=== PATIENT | male | born 1970 | race Caucasian/White ===

== ENCOUNTER 2017-01-22 12:43 | Inpatient (IN) | payer MEDICARE, MEDICAID ==
[~2017-01-22] VITALS: Ht 182.9 cm; Wt 72.4 kg
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
--- NOTE | ~2017-01-22 | CON ---
PATIENT'S NAME: DIGNA JONAS [facility] AGE: 46 Y [address] ROOM: [place] [address] LOCATION: GPCU ADMIT DATE: 01/22/2017 Consultation DISCHARGE DATE: FAMILY PHYSICIAN: PHYSICIAN, UNKNOWN ATTENDING PHYSICIAN: Nahomi WRIGHT DATE OF CONSULTATION: 01/23/2017 REFERRING PHYSICIAN: Nahomi Wright MD REASON FOR CONSULT: Multiple skin issues. HISTORY OF PRESENT ILLNESS: This is a 46-year-old male patient who was admitted to [facility] with acute encephalopathy. He has history of TBI and mood disorder. He was found lying in a motel room. No family at bedside. Unsure how long the patient was on the ground. Per previous records, the patient has a history of bipolar and was recently living with his mother, but they had a falling out. During my interaction, the patient is unable to answer questions. He is agitated and thrashing around in bed. PAST MEDICAL HISTORY: TBI, unspecified mood disorder, and bipolar. PAST SURGICAL HISTORY: Pain stimulator. FAMILY HISTORY: Unable to obtain. SOCIAL HISTORY: The patient was currently living in a hotel. Unsure about toxic habits. ALLERGIES: PER PREVIOUS RECORDS, ANESTHETIC, PENICILLIN, SULFA, ACETAMINOPHEN, BUPIVACAINE, CODEINE, HYDROCODONE, MORPHINE, OXYCODONE, METHADONE, AND PROPOXYPHENE. CURRENT MEDICATIONS: Please refer to the medication administration record. REVIEW OF SYSTEMS: Unable to complete due to the patient's agitation and mentation. PHYSICAL EXAMINATION: PATIENT'S NAME: DIGNA JONAS [facility] AGE: 46 Y [address] ROOM: [place] [address] [facility] AD[facility] DATE: 01/22/2017 Consultation DISCHARGE DATE: FAMILY PHYSICIAN: PHYSICIAN, UNKNOWN ATTENDING PHYSICIAN: Nahomi WRIGHT VITAL SIGNS: Temperature 98.5, pulse is 96, respirations 18, blood pressure 129/67, pulse oximetry 94% on 2 L. Height not documented, and weight 69.4 kg. GENERAL: The patient is alert and agitated. He is thrashing around in bed. Soft speech at times. The patient unkempt. Obvious multiple skin issues on first appearance. HEENT: No teeth. Scattered red dry lesions to upper lip. Does resemble vesicles. ABDOMEN: Flat ecchymosis to right flank. EXTREMITIES: Bony feet. Patient thrashing around, so unable to feel pedal pulses. SKIN: Limited due to agitation, unable to obtain any measurements. The patient has a sacral purple area resembling a deep tissue injury that is closed. Blanchable erythema to the perimeter. The patient bilaterally has significant scabbing and abrasions that are dry to knees. Blanchable redness to the patient's right lateral malleolus. Left elbow has scattered abrasions, which are already covered with yellow slough with redness and edema. Obviously, tender to touch. The patient withdraws when I try to assess. Ecchymosis to right groin fold and right thigh. Redness to right elbow. Scattered ecchymosis to upper shoulders. LABORATORY DATA: White blood cell count 20.4, hemoglobin 10.1, hematocrit 30.9, platelets 661. Sodium 145, potassium 4.1, chloride 113, bicarb 14, creatinine 0.7, BUN 15, glucose 86, albumin 2.4. GFR greater than 90. Ammonia 34. Procalcitonin 0.10. Urine drug screen positive for opiates only. D-dimer 0.76. Lactate 1.9. ASSESSMENT AND PLAN: Again, this is a 46-year-old male patient who has been admitted to [facility] with acute encephalopathy. He was found lying in a motel room for an uncertain amount of time. Multiple skin issues noted. 1. Sacral deep tissue injury. I anticipate this site with demarcate open. Nursing is to perform strict pressure relief measures turning patient side to side q.2 hours. The patient has a Moeller intact for moisture control. We will continue to monitor. When the patient is able to tolerate oral intake, a dietary consult would be helpful. If he does get up to the chair, he will need an Iris cushion. 2. Multiple abrasions to bilateral knees. It will be difficult to keep dressings on this patient at this current time. We will moisturize with Aloe [place] t.i.d. I applied to his knees and he did calm down. 3. Left elbow scattered abrasions. It took me several times, but was able to eventually apply foam dressings to the sites. I instructed Nursing to change Tuesdays, Fridays, and p.r.n. saturation. The less labor intensive, the better at this point. Foams will encourage wound PATIENT'S NAME: DIGNA JONAS [facility] AGE: 46 Y [address] ROOM: [id number] [place], [place] [address] [facility] AD[facility] DATE: 01/22/2017 Consultation DISCHARGE DATE: FAMILY PHYSICIAN: PHYSICIAN, UNKNOWN ATTENDING PHYSICIAN: Nahomi WRIGHT perforation. Ordered bilateral elbow protectors if the patient will allow. 4. Blanchable redness to right lateral malleolus. Ordered foam foot boots. Hopefully, the patient will allow staff to keep on. If not, his lower legs need to be elevated with pillows at all times. 5. Scattered red lesions to upper lip. I would like Nursing to perform oral cares at least b.i.d. It would be helpful to have a further history to distinguish what these lesions are. Possibly herpes related. 6. Acute encephalopathy. Neurology and psych on board. I would like to thank Dr. Wright for this consult. We will follow. ANGELITO JOHNSON APRN FOR MD MARQUIS STOVER/lucien /[id number] d: 01/23/17937 t: 02/10/17 1120, CONSULTATION REPORT
--- NOTE | ~2017-01-22 | CON ---
PATIENT'S NAME: DIGNA JONAS [facility] AGE: 46 Y [address] ROOM: [id number] [place], [place] [address] LOCATION: GPCU ADMIT DATE: 01/22/2017 Consultation DISCHARGE DATE: FAMILY PHYSICIAN: Rosa Maria Krueger MD ATTENDING PHYSICIAN: Nahomi WRIGHT DATE OF CONSULTATION: 01/24/2017 HISTORY OF PRESENT ILLNESS: The patient was seen in neurologic consultation on the 24 January 2017. I was asked by Dr. Wright to assess Mr. Jonas, who is a 46-year-old male patient who at the time of my seeing the patient, we had very little information about. Apparently, the patient has a psychiatric mood disorder and possibly an alcohol problem. In talking to his mother, she says that he has had admissions in the past for issues associated with alcohol abuse, and she believes potentially that he may have been drinking at home. He does hold a history of a traumatic brain injury for which his brain CAT scan has consistently revealed an area of encephalomalacia in the right temporal lobe. It is unclear as to whether the patient does have a history of bipolar disease and/or a history of psychosis. Apparently, he was living alone often in a state of homelessness and even dishevelment when he was found in a motel room. It is possible that the patient was down on the ground there for at least a day or two. He was living away from his mother after he was in an argument with her. He and his family have a mixed relationship that is often deleterious. I came and saw the patient. He was actually improving with his mental status and was able to answer questions appropriately. He appeared to be having some tremulousness. He was noted to be tachycardic. He was not hypertensive. He did not have any rigidity of his limbs as a possible concern that he may have had a toxic effect of antipsychotic medication side effect or side effects from anti-depressant. Essentially, he made a good recovery with fluid rehydration. He was noted to have some mild rhabdomyolysis, which suggested that he was down on the ground for some time. It is unclear if the patient had a withdrawal seizure, the result of an alcohol withdrawal event, but certainly in the initial days of his admission, the treatment for the patient would be monitoring him for alcohol withdrawal. It is my contention that he was likely a candidate for CIWA protocol due to the potential history of alcohol abuse and his bit of tremulousness and mild agitation with some alcohol withdrawal. Therefore, the patient did receive benzodiazepine dosing, but the patient did not go into any more episodes of agitation and actually did well during his hospitalization. He now is transferred to the ICU for further observation. MEDICAL HISTORY: Unspecified mood disorder. Also, a traumatic brain injury. SURGICAL HISTORY: PATIENT'S NAME: DIGNA JONAS [facility] AGE: 46 Y [address] ROOM: [id number] [place], [place] [address] LOCATION: GPCU ADMIT DATE: 01/22/2017 Consultation DISCHARGE DATE: FAMILY PHYSICIAN: Rosa Maria Krueger MD ATTENDING PHYSICIAN: Nahomi WRIGHT A pain stimulator in his dorsal spine. FAMILY HISTORY: Not elaborated on by the mother. Her answers to me were evasive and not very helpful. CURRENT MEDICATIONS: 1. Metoprolol 12.5 mg p.o. b.i.d. 2. Dextromethorphan 10 mg b.i.d. 3. Pantoprazole 40 mg p.o. daily. 4. Guaifenesin 600 mg p.o. q.6 hours. 5. Folic acid 1 mg p.o. daily. 6. Albuterol sulfate 2.5 mg p.o. q.6 hours. 7. Ferrous sulfate 325 mg p.o. b.i.d. 8. Quetiapine 100 mg p.o. q.h.s. 9. Haldol 5 mg q.8 hours p.r.n. agitation. 10. Mometasone formoterol 2 puffs b.i.d. inhalation. 11. Nicotine transdermal patch 14 mg daily. REVIEW OF SYSTEMS: The patient denies any recent fevers. He denied any upper respiratory tract infection. He denies any cough. He denied history of drinking, but this history is suggestive by some elevation in his AST compared to ALT as well as slightly low platelet count. Denies any diarrhea or constipation. Urinary- muniz, he is a poor historian, but denies frequency of urination or urinary retention. PHYSICAL EXAMINATION: The patient appeared a bit unkempt and disheveled, but he began to be purposeful in his answers to me. He answered questions appropriately. He did not appear to be agitated, but he had some tremulousness and he was noted to be tachycardic at 115 beats per minute in normal sinus rhythm. Cranial nerves 2 through 12 were intact. His motor exam revealed normal bulk and tone of the muscles of all 4 limbs. He participated in moving his limbs with good power at 5/5 grade. He did not appear to be undernourished. In his mental status, he followed a full cross-body commands such as touching his left face with his right finger, etc. He had occasional repetition of a word much like an echolalia. This was rarely noticed. On stretched hands, he did not demonstrate any asterixis. He did have what appeared to be a bit of restless akathisia. LABORATORY DATA: As noted previously, his AST was elevated to 75 in comparison to ALT of 47. Alkaline phosphatase is normal. His BUN and creatinine also normal. Drug toxicology was negative for barbiturates, benzodiazepines, PCP, cannabinoids, and amphetamine. Alcohol level was negative. PATIENT'S NAME: DIGNA JONAS [facility] AGE: 46 Y [address] ROOM: [address] [address] [facility] ADMIT DATE: 01/22/2017 Consultation DISCHARGE DATE: FAMILY PHYSICIAN: Rosa Maria Krueger MD ATTENDING PHYSICIAN: Nahomi WRIGHT ASSESSMENT AND PLAN: From a neurologic perspective, I do believe that the patient probably had an alcohol drinking binge, though I cannot prove this. He certainly has had some restlessness and mild agitation when he came in, but he has rapidly made a good recovery. He was answering all questions appropriately. His akathisia was calming down after benzodiazepine treatments with Ativan as well as receiving benztropine. I did not feel that the patient had signs and symptoms suggestive of side affects from neuroleptics medications such as NMS, and his blood pressure remained stable though tachycardic. This would unlikely be related to effects of serotonin medications if he was on this. The patient was to be seen by psychiatric consultation. The result of the EEG which I reviewed actually just showed some slowing in the background rhythm. There was no evidence of any epileptiform features and no seizures were evident. In the setting of the patient's mild rhabdomyolysis with some dehydration possibly associated with inebriation and even the possibility of a withdrawal seizure from alcohol at home, his current state of very mild agitation may be a bit of alcohol withdrawal. I think in general he is going to do well as mental status is very good at this point in time. This was discussed thoroughly with the hospitalist, Dr. Wright in the discussion. MD FERNANDA LANDRY/lucien /[id number] d: 02/02/172 t: 02/20/17 1555, CONSULTATION REPORT
--- NOTE | ~2017-01-22 | HP ---
PATIENT'S NAME: DIGNA JONAS [facility] AGE: 46 Y [address] ROOM: [id number] [place], [place] [address] LOCATION: GPCU ADMIT DATE: 01/22/2017 History & Physical DISCHARGE DATE: FAMILY PHYSICIAN: PHYSICIAN, UNKNOWN ATTENDING PHYSICIAN: Nahomi CASTRO DATE OF SERVICE: CHIEF COMPLAINT: Acute encephalopathy. HISTORY OF PRESENT ILLNESS: The patient is a 46-year-old gentleman with the past medical history of TBI with residual left upper extremity weakness and undefined, unspecific past medical history of bipolar disorder and mood disorder. According to brother, Luis whom I spoke over the phone, the patient was living with his mother recently and was able to ambulate. However, due to some family disagreement, the patient recently moved into a hotel. However, the patient was found in the hotel today stuck in-between the bed and confused. The patient was brought into the emergency department for further evaluation. In the emergency department, patient was noted to be unkept and had multiple excoriations and abrasions, and also noted to have soiled in himself. The patient was found to be alert and oriented x1 and is noted to be confused. The patient was also noted to have unpurposeful movements. On further investigation and discussion, the patient could not give a better information about his presentation due to his mentation. The patient shows signs of echolalia and answers some questions, but however most of the questions, he was not able to answer and repeats himself. I tried to contact mother but unable to get hold of mother. I am not able to acquire patient's home medications. But according to his brother, Luis, the patient has been admitted to Psychiatry in the past, and apparently, mother is on her way from [place] to bring his home medications. PAST MEDICAL HISTORY: 1. TBI. 2. Unspecified mood disorder. PAST SURGICAL HISTORY: The patient has dorsal column pain stimulator in. FAMILY HISTORY: Unable to fully obtain due to the patient's mentation. SOCIAL HISTORY: PATIENT'S NAME: DIGNA JONAS [facility] AGE: 46 Y [address] ROOM: [id number] [place], [place] [address] LOCATION: GPCU ADMIT DATE: 01/22/2017 History & Physical DISCHARGE DATE: FAMILY PHYSICIAN: PHYSICIAN, UNKNOWN ATTENDING PHYSICIAN: Nahomi CASTRO The patient currently lives in a hotel, and according to brother, he smokes. MEDICATIONS: There is no medication list, and awaiting for medication reconciliation. REVIEW OF SYSTEMS: Tried of a 10-full review of systems from brother. According to his brother, the patient was able to ambulate and has good mentation prior to this. PHYSICAL EXAMINATION: VITAL SIGNS: Temperature 97.4, blood pressure 112/63, heart rate of 93, respiratory rate of 16, and saturating 98% on room air. GENERAL APPEARANCE: The patient is unkempt, lying on bed with unpurposeful movements of right upper extremity and bilateral lower extremities. HEENT: Head; normocephalic. Eyes; extraocular muscles intact. Mouth; full dentition and dry oral mucosa. Nose; no nasal discharge. Ears; no ear discharge. CHEST: Clear to auscultation bilaterally. ABDOMEN: Soft, nontender, and nondistended. Bowel sounds present. The patient has some mild ecchymosis in the left lower abdomen. BACK: The patient has grade 1 sacral ulcer. SKIN: Warm to touch. The patient has multiple healing abrasions. EXTREMITIES: Atrophic left upper extremity. AUTO CLUB TRAVEL COUNSELOR: The patient is alert and oriented x1. The patient has unpurposeful movements of right upper extremity and bilateral lower extremities. The patient's sensation is intact. The patient shows echolalia. LABORATORY DATA: Labs; pH of 7.38, pCO2 of 28, pO2 of 65, and bicarbonate of 16.6. Lactate of 1.9. Accu-Chek of 91. CPK is 1658, troponin x1 is negative. White blood cell count of 20, hemoglobin of 10.0, and platelets of 661,000. PT of 1. AST of 75, ALT of 47, and alkaline phosphatase of 121. CO2 of 16, potassium of 4.0, sodium of 138, BUN of 19, creatinine 0.8, and albumin of 2.9. Tylenol is less than 2, salicylate of 6.6. Drug screen shows positive for opiates. Negative for amphetamine, barbiturates, benzodiazepine, PCP, and cannabinoids. IMAGING STUDIES: CT shows no mediastinal hematoma. No pneumothorax or subcutaneous emphysema. Patchy area of parenchymal opacity at the left and right upper lung which PATIENT'S NAME: DIGNA JONAS [facility] AGE: 46 Y [address] ROOM: [id number] [place], [place] [address] [facility] ADMIT DATE: 01/22/2017 History & Physical DISCHARGE DATE: FAMILY PHYSICIAN: PHYSICIAN, UNKNOWN ATTENDING PHYSICIAN: Nahomi CASTRO could reflect contusion, atelectasis, or infiltrate. No CT finding of laceration or contusion of liver. No free air or free fluid identified in the abdomen. Dorsal column stimulator and inferior vena cava filter present. ASSESSMENT AND PLAN: 1. Acute encephalopathy, etiology currently unknown, however, due to the patient's extensive history of mood disorder, possible on some antipsychotic medications, who recently was living by himself after an argument with the family member. Etiology is most likely secondary to extrapyramidal syndrome secondary to antipsychotic medications as patient shows signs of akathisia and possible dystonia. The patient was given Ativan and benztropine in the emergency department with some improvement of symptoms. Differential diagnosis is also acute withdrawal of antipsychotic and mood disorder medications. We will treat the patient supportively with benzodiazepine as needed and benztropine. Also we will await for family members, mother to come with home medications and to check level of home medications, especially if the patient is on antipsychotic medications. To acquire a Psychiatry consult in the morning when the patient is stable. We will acquire EEG. The patient's POA is mother, and we will await for her visit. 2. Rhabdomyolysis, elevated CK, etiology secondary to fall. To continue IV fluids. 3. Anion gap metabolic acidosis most likely secondary to mildly elevated lactate and dehydration. We will continue IV fluids and check CMS daily. 4. Possible aspiration pneumonia. The patient is noted to have leukocytosis and CT showing possible bilateral patchy infiltrates. For now, we will treat with antibiotic, clindamycin as the patient is also allergic to penicillin from prior history. 5. Mood disorder, waiting for the patient's medication list. 6. Traumatic brain injury. 7. Tobacco use. Greater than 70 minutes were spent in patient's care. Greater than 50% was spent in direct patient's care. Discussion with Dr. Salgado; discussion with the patient's brother, Luis; and discussion with Dr. Muhammad, Neurology web development consultant. We will admit the patient for acute encephalopathy. Code status could not be obtained as POA was unable to be acquired. We will admit the patient as full code. PATIENT'S NAME: DIGNA JONAS [facility] AGE: 46 Y [address] ROOM: [place] [address] LOCATION: [facility] ADMIT DATE: 01/22/2017 History & Physical DISCHARGE DATE: FAMILY PHYSICIAN: PHYSICIAN, UNKNOWN ATTENDING PHYSICIAN: Nahomi CASTRO MD DA/lucien /[id number] D: [id number] T: [id number] HISTORY & PHYSICAL
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
--- NOTE | ~2017-01-22 | NDGEN ---
PATIENT'S NAME: DIGNA JONAS [facility] AGE: 46 Y [address] ROOM: [place] [address] LOCATION: GICU ADMIT DATE: 01/22/2017 Neurodiagnostics DISCHARGE DATE: FAMILY PHYSICIAN: Rosa Maria Krueger MD ATTENDING PHYSICIAN: Nahomi CASTRO PROCEDURE: ELECTROENCEPHALOGRAM DATE OF PROCEDURE: 01/23/2017 PROCEDURE PERFORMED: EEG. TIME: 9:20 a.m. INDICATIONS: This is a 46-year-old male patient who has a history of possible alcohol abuse with psychiatric history, who was found down at his home, poorly responsive, and came in here to our hospital with a lot of agitation and akathisia. He was very restless during this EEG. The patient actually was following commands and answering questions appropriately, but was quite rambunctious nonetheless, there may be a quality of either alcohol withdrawal or psychiatric issues ongoing. DESCRIPTION OF PROCEDURE: The general background rhythm seen in this 18-lead EEG reveals a slow 4-6 hertz theta rhythm which was seen almost exclusively in the central, parietal leads. The other leads had extensive artifactual findings due to the patient moving throughout the whole study. The frontal leads were very much obscured. However, based upon the background rhythm, at no time was there any appreciation of spike or spike-wave pattern. Certainly no seizure activity was seen throughout the 20-minute study. Again, this was an extremely technically poor study due to the patient having extensive moving throughout the whole 18-minute study. IMPRESSION: This is an abnormal electroencephalogram with the background rhythm showing slowing of about 4-6 hertz theta rhythm. This is likely associated with the patient being in the setting of confusion, encephalopathy, however, he was following commands and answering brief questions appropriately. There was no evidence of any seizure activity and no pattern of epileptiform features were seen. The patient's medical history is suggestive of possibly some mild hepatic encephalopathy or alcohol withdrawal or multi-pharmacy issues may be playing a role in the patient's slow background rhythm. PATIENT'S NAME: DIGNA JONAS [facility] AGE: 46 Y [address] ROOM: [place] [address] LOCATION: GICU ADMIT DATE: 01/22/2017 Neurodiagnostics DISCHARGE DATE: FAMILY PHYSICIAN: Rosa Maria Krueger MD ATTENDING PHYSICIAN: Nahomi CASTRO MD FERNANDA LANDRY/lucien /[id number] dtt: 02/20/17 1552 ISABELLE JASON R. dtd: 01/23/17 1707
--- NOTE | ~2017-01-22 | DS ---
PATIENT'S NAME: DIGNA JONAS [facility] AGE: 46 Y [address] ROOM: [address], [place] [address] LOCATION: GPCU ADMIT DATE: 01/22/2017 Discharge Summary DISCHARGE DATE: 02/07/2017 FAMILY PHYSICIAN: Rosa Maria Krueger MD ATTENDING PHYSICIAN: Nahomi Wright CORRECTED COPY -- WORK TYPE / 02-09-2017 / [facility] FINAL DIAGNOSES: 1. Acute hypoxic respiratory failure. 2. Acute encephalopathy secondary to infection. 3. Severe sepsis secondary to pneumonia. 4. Enterobacter cloacae complex pneumonia. 5. Aspiration. 6. Nontraumatic rhabdomyolysis. 7. Moderate protein-calorie malnutrition. 8. Chronic obstructive pulmonary disease exacerbation. 9. Traumatic brain injury. 10. Normocytic anemia. 11. Hypernatremia. 12. Hypokalemia. Please see history and physical dictated by Dr. Wright at the time of admission. In short, the patient was found unresponsive in his apartment and was unclear how long he had been lying there. He was brought to the emergency room and felt to need hospitalization. LABORATORY DATA: On admission, his pH was 7.38, pCO2 28, PO2 65 on room air. Sodium on admission was 138, got as high as 150 on January 24, most prior to discharge it was 142. Potassium on admission was 4, it got as low as 2.7 on the , at discharge was 4.2. CO2 on admission was 16, got as low as 14 on , at discharge it was 28. BUN on admission was 19, discharge 12; creatinine on admission was 0.8, at discharge 0.5. On admission, his alkaline phosphatase was 121, AST 75, ALT 47, his alcohol was less than 0.01. Amylase 40, lipase 123, CPK 1,658, troponin was less than 0.04. Acetaminophen level less than 2, salicylate level 6.6, C-reactive protein was 12.4. TSH is 0.4, free T4 of 1, proBNP 794. Most prior to discharge, these were checked and the alkaline phosphatase was 106, AST 12, ALT 24, ammonia on admission was 34. On admission, white blood cell count 15.6, it did drop down to 8.8 by the and on the it was 22.1, most prior to discharge it was 12.9. Hemoglobin on admission was 10.1, it did drop to 8.4, and then did drop as low as 7.6 on the , most prior to discharge it was 8. Platelet count on admission was 661, most prior to discharge 466. Procalcitonin on admission was 0.14. Viral infections CSF meningitis panel was negative on admission. CSF fluid 0 white. CSF chemistry, protein was 27, glucose 86. Urinalysis was negative. PATIENT'S NAME: DIGNA JONAS [facility] AGE: 46 Y [address] ROOM: [id number] [place] [id number] LOCATION: GPCU ADMIT DATE: 01/22/2017 Discharge Summary DISCHARGE DATE: 02/07/2017 FAMILY PHYSICIAN: Rosa Maria Krueger MD ATTENDING PHYSICIAN: Nahomi Wright RADIOLOGY DATA: CT scan of the head done in the emergency room did not show any skull fracture. Cervical spine x-ray was negative for fracture. CT scan abdomen and pelvis done on admission did not show any pneumothorax. There is some patchy opacity in his upper left and right lung. Lumbar spine, two views, showed some degenerative changes, but nothing acute. Repeat CT scan of the abdomen done on the to rule out bleeding showed he had a large subcutaneous hematoma on the right flank. PE protocol on January 30 was negative for a pulmonary embolism. He did have bilateral pleural fluids. He had dense opacity in both lungs in left upper, also had in the right upper as well. Cardiovascular data, none. HOSPITAL COURSE: The patient was admitted after presenting to the emergency room after being found down. It was felt that he needed admission to the hospital as there was concern about his neurologic status. He was evaluated for infection and started empirically on antibiotics. Many of his medications were discontinued on admission because of our concern that they may be affecting his mentation. He was seen and evaluated by Neurology. A lumbar puncture was obtained which was negative. Multiple metabolic reasons for his esophageal encephalopathy were excluded. He was started on the CIWA protocol because he had a history of alcohol abuse. I was covered with Rocephin and vancomycin. Workup was done to try and find the source of infection and unfortunately, we were not able to find any. His hemoglobin did drop. A CT scan was done, it showed that he had a flank hematoma. His mentation did improve. He became hypernatremic. His IV fluids were adjusted. He has been given aggressive IV hydration on admission. He was still concerned that he had sepsis and so he was continued on the antibiotics. He was advanced on his diet. PT and OT did work with him. His IV antibiotics were discontinued on the and he was put on oral clindamycin. He then spiked a fever again and was covered with Zosyn and vancomycin was restarted. In the evening, he did have a coarse cough on the night of January 29 he had worsening respiratory status with higher oxygen requirements. He was transferred to the intensive care unit. Spiral cut CT scan was done to rule out a PE. It did show that he had significant pneumonia. He was started on Mucinex and his antibiotics were adjusted and Levaquin was added to the regimen. He was checked for urine. His urine was checked for strep pneumoniae antigen. There was some thought that he had some extra fluid on board, so he was given Bumex. He was started on Florastor for C. difficile prophylaxis and was given Protonix as a GI prophylaxis as he was on IV steroids. Speech did evaluate him and they did feel that he was aspirating, modified barium swallow was ordered. He did in fact have some issues and so was recommended to have honey thick liquids and pureed foods. With good pulmonary toilet and antibiotics, he did significantly improve. His Solu-Medrol was changed to prednisone. We did change the Levaquin to elixir. It was thought that he had a pleural effusion, the thought was to have a thoracentesis but the effusions had resolved. The patient was stable to be moved out of the intensive care unit on the . His sputum had returned PATIENT'S NAME: DIGNA JONAS [facility] AGE: 46 Y [address] ROOM: [address] [address] LOCATION: GPCU ADMIT DATE: 01/22/2017 Discharge Summary DISCHARGE DATE: 02/07/2017 FAMILY PHYSICIAN: Rosa Maria Krueger MD ATTENDING PHYSICIAN: Nahomi Wright positive for Enterobacter cloacae. The decision was made to just use Levaquin. He continued to work with therapy. His oxygen requirements did slowly decrease and in fact he was able to be weaned off the oxygen. He did receive intermittent doses of Lasix, his FRANNIE hose were placed. He worked with Physical and Occupational therapy every day. On the , repeat modified barium swallow showed that he had passed regular texture and thin liquids. During this time frame, Care Management worked very diligently to try and find appropriate discharge for him, a bed became available likewise, so he was discharged. DISCHARGE INSTRUCTIONS: Have regular textured foods with thin liquids. No straws or hard candies. Weightbearing as tolerated. PT, OT, and speech therapy. MEDICATIONS: Are as follows: 1. Spiriva inhaler 1 inhalation daily. 2. Symbicort 160/4.5 two puffs twice daily. 3. Percocet 10/325 one tab 4 times daily. 4. Lidocaine applied topically to his shoulders. 5. Seroquel 100 mg at bedtime. 6. Ferrous sulfate 325 mg daily. 7. Folic acid 1 mg daily. 8. Mucinex 600 mg every 6 hours as needed. 9. Metoprolol 12.5 mg twice daily. 10. Prednisone 5 mg daily, which we will stop on February 09. 11. Protonix 40 mg daily. 12. Florastor 250 mg twice daily for 7 more days. 13. Acetaminophen 650 mg every 4 hours as needed. 14. DuoNeb treatments every 4 hours as needed. 15. Nicotine patch 7 mg on in the morning, off at night, to stop in 10 days. OVERALL PROGNOSIS AT DISCHARGE: Good. The patient did voice understanding. I did discuss this with his mother. HEMANT BARROSO MD LAW/modl /[id number] CORRECTED COPY -- WORK TYPE / 02-09-2017 / [facility] d: 02/07/178 t: 02/16/171948, DISCHARGE SUMMARY
[2017-01-22 13:23] LABS: BASOPHIL % 0.1 %; HEMATOCRIT 30.9 % (37.0-53.0); HEMOGLOBIN 10.1 g/dL (12.0-17.0); IMMATURE GRANULOCYTE # 0.1 K/uL (0.0-0.3); IMMATURE GRANULOCYTE % 0.7 %; LYMPHOCYTE # 0.7 K/uL (0.8-4.0); LYMPHOCYTE % 3.6 %; MCHC 32.7 gm/dL (32.0-36.5); MCV 94.8 fl (83.0-98.0); MONOCYTE # 1.1 K/uL (0.0-1.0); MONOCYTE % 5.2 %; NEUTROPHIL # (ANC) 18.4 K/uL (1.4-9.0); NEUTROPHIL % 90.4 %; NRBC % 0 /100WBC (0-0.00); PLATELET COUNT 661 K/uL (150-450); RDW-CV 13.9 % (11.9-14.6)
[2017-01-22 13:23] LABS: BILIRUBIN URINE NEGATIVE (NEGATIVE); BLOOD URINE NEGATIVE /UL (NEGATIVE); COLOR URINE YELLOW (YELLOW); GLUCOSE URINE NEGATIVE (NEGATIVE); KETONE URINE 150 mg/dL (NEGATIVE); LEUKOCYTES URINE NEGATIVE /UL (NEGATIVE); NITRITE URINE NEGATIVE (NEGATIVE); PROTEIN URINE NEGATIVE (NEGATIVE); SPEC GRAVITY URINE 1.015 (1.003-1.035); TURBIDITY URINE CLEAR (CLEAR); UROBILINOGEN URINE NORMAL (NORMAL)
[2017-01-22 13:24] LABS: RBC 3.26 M/uL (4.00-6.00); WBC 20.4 K/uL (4.0-11.0)
[2017-01-22 13:31] LABS: INR - (THERAPEUTIC) 1.02 (0.92-1.07); PROTIME 10.7 SECONDS (9.8-11.4); PTT 30 SECONDS (25-32)
[2017-01-22 13:44] LABS: BARBITURATE NEGATIVE (NEGATIVE); COCAINE NEGATIVE (NEGATIVE)
[2017-01-22 13:45] LABS: ALBUMIN 2.9 gm/dL (3.5-5.0); ALK PHOS 121 IU/L (33-138); ALT 47 IU/L (12-78); AMPHETAMINE NEGATIVE (NEGATIVE); BLOOD UREA NITROGEN 19 mg/dL (6-24); CALCIUM 8.6 mg/dL (8.5-10.5); CHLORIDE 101 mMol/L (96-110); CREATININE 0.8 mg/dL (0.6-1.3); OPIATES POSITIVE (NEGATIVE); SODIUM 138 mMol/L (135-145); TOTAL BILIRUBIN 0.7 mg/dL (0.0-1.5); TOTAL PROTEIN 6.3 g/dL (6.0-8.4)
[2017-01-22 13:46] LABS: AST 75 IU/L (10-40); CO2 16 mMol/L (22-32)
[2017-01-22 13:55] LABS: CPK 1658 IU/L (35-332)
[2017-01-22 14:30] LABS: BICARBONATE 16.6 mmol/L (18.0-23.0); PCO2 28 mmHg (35-45); PO2 65 mmHg (80-90)
--- NOTE | 2017-01-22 17:34 | NUR ---
Patient admitted to PCU after he was found down at a Motel. Family last spoke with him on Sunday. He is a poor historian. Not answering questions appropriately, has only yelled out in pain and was uncooperative with staff when bathing him. Incontinent of both bowel and bladder. VSS on RA. Very restless and becomes very agitated with cares. Numerous skin issues - ulcers to elbow, coccyx and wrist. Moeller placed at 1700. SL to R) AC.
[2017-01-22 18:20] LABS: BANDED NEUTROPHIL # 0.6 K/uL (0.0-0.1); BANDED NEUTROPHILS % 3 %; LYMPHOCYTE % 5 %; MONOCYTE # 0.4 K/uL (0.0-1.0); SEGMENTED NEUTROPHIL # 18.4 K/uL (1.4-9.0); SEGMENTED NEUTROPHIL % 90 %
--- NOTE | 2017-01-23 04:24 | NUR ---
ALERT. ORIENTED TO SELF AND PLACE. CANNOT TELL YOU HE IS IN THE HOSPITAL. REPEDITIVE WORDS. HX L) ARM PARALISIS. THRASHES OTHER EXTREMITIES WITHOUT PURPOSE. NOT PULLING ON LINES OR TUBES. ATIVAN GIVEN x2 LITTLE TO NO RELIEF. AFEBRILE. HR TACHY 90-110s. BEDREST. NPO. NS AT 150ML/HR. FLOEY INTACT. MULTI SORES. NO BM.
[2017-01-23 06:38] LABS: ALBUMIN 2.4 gm/dL (3.5-5.0); ALK PHOS 86 IU/L (33-138); ALT 43 IU/L (12-78); ANION GAP 22.1 (10.0-19.0); AST 73 IU/L (10-40); BLOOD UREA NITROGEN 15 mg/dL (6-24); CALCIUM 8.3 mg/dL (8.5-10.5); CHLORIDE 113 mMol/L (96-110); CO2 14 mMol/L (22-32); CREATININE 0.7 mg/dL (0.6-1.3); POTASSIUM 4.1 mMol/L (3.7-5.1); SODIUM 145 mMol/L (135-145); TOTAL BILIRUBIN 0.6 mg/dL (0.0-1.5)
[2017-01-23] MEDS ORDERED: KADIAN40 MG PO (10:51)
[2017-01-23] MEDS ORDERED: SPIRIVA HANDIHA1 KIT INH (10:51)
[2017-01-23] MEDS ORDERED: SYMBICORT 16010.2 GM INH (10:52)
[2017-01-23] MEDS ORDERED: PERCOCET 10-321 EACH PO (10:53)
[2017-01-23] MEDS ORDERED: CYMBALTA60 MG PO (10:53)
[2017-01-23] MEDS ORDERED: LUNESTA3 MG PO (10:54)
[2017-01-23] MEDS ORDERED: NEURONTIN300 MG PO (10:55)
[2017-01-23] MEDS ORDERED: XYLOCAINE 2%20 MG/ML TOP (10:55)
[2017-01-23] MEDS ORDERED: VESICARE5 MG PO (10:56)
[2017-01-23] MEDS ORDERED: CYMBALTA30 MG PO (10:56)
[2017-01-23] MEDS ORDERED: NEXIUM40 MG PO (10:56)
[2017-01-23] MEDS ORDERED: LISINOPRIL-HCT1 EAC2 PO (10:57)
[2017-01-23] MEDS ORDERED: SEROQUEL50 MG PO (10:58)
[2017-01-23 12:03] LABS: BASOPHIL % 0.1 %; HEMATOCRIT 25.8 % (37.0-53.0); HEMOGLOBIN 8.4 g/dL (12.0-17.0); IMMATURE GRANULOCYTE # 0.1 K/uL (0.0-0.3); IMMATURE GRANULOCYTE % 0.8 %; LYMPHOCYTE # 0.9 K/uL (0.8-4.0); LYMPHOCYTE % 5.7 %; MCH 30.9 pg (27.0-34.0); MCHC 32.6 gm/dL (32.0-36.5); MCV 94.9 fl (83.0-98.0); MONOCYTE # 1.1 K/uL (0.0-1.0); MONOCYTE % 7.1 %; MPV 8.7 fl (9.4-12.4); NEUTROPHIL # (ANC) 13.4 K/uL (1.4-9.0); NEUTROPHIL % 86.3 %; NRBC % 0 /100WBC (0-0.00); PLATELET COUNT 452 K/uL (150-450); RBC 2.72 M/uL (4.00-6.00); RDW-CV 14.6 % (11.9-14.6); WBC 15.6 K/uL (4.0-11.0)
[2017-01-23 12:29] LABS: AMPHETAMINE NEGATIVE (NEGATIVE); BARBITURATE NEGATIVE (NEGATIVE); COCAINE NEGATIVE (NEGATIVE)
[2017-01-23 12:30] LABS: OPIATES POSITIVE (NEGATIVE)
--- NOTE | 2017-01-23 12:42 | NUR ---
1114 Patient is not appropriate to talk with right now. CM will come back later to talk with him about dismissal plans.
--- NOTE | 2017-01-23 14:00 | NUR ---
Patient transferred to ICU at 1400, report given to Marquez VALVERDE. Patient restless and not following commands or being cooperative with cares. C/O L) arm pain with repositioning. ativan given for agitation/restlessness. Dr Verduzco consult and eeg completed. Sindi consult obtained and [facility] notified of consult. BPs 110s, HRs 70s-low 100s sinus. Room air low 90s. Moeller to dd with good UOP
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
--- NOTE | 2017-01-23 19:11 | NUR ---
Significant Event: Alert to first and last name. Unsure of month, specific location or year. States [place] on occasion. Pupils 3-4 equal and brisk. Moves all extremities spontaneously besides LUE chronic flaccidity. Uncooperative with cares, agitated and restless, on Hi-Lo bed. SBP 100-130's, HR 80-110's, 2+ pulses absent edema. L.S. L) coarse, R) clear. B.S. active, 01/23 Last BM, incontinent of stool. Moeller catheter intact draining light pete urine. Bed/chair alarms on at all times. Gave Ativan 1mg x 1 for CIWA 14; no improvement. PIV R) forearm infusing banana bag at 100/hr with intermittent atbx. R) AC PIV SL'd. Follow up: LP in AM, continue to monitor.
--- NOTE | 2017-01-24 05:27 | NUR ---
Significant Event: PATIENT IS ALERT, RESTLESS ET AGITATED. ORIENTED TO SLEF ONLY. VOCALIZES LOUDLY AT TIMES, OCC CRYING. ABLE TO REDIRECT FOR SHORT PERIODS OF TIME ONLY. LOW BED WITH MATS, INITIATED 1:1 SUPERVISION PATIENT WAS RESTLESS ET PLACING LEGS OVER SIDE OF BED. LOWER EXTREMETIES EQUAL IN STRENGTH. LUE FLACCID, RUE STRONG TO COMMAND. DENIES HEADACHE, NUMBNESS OR TINGLING. PUPILS 5 EQUAL AND BRISK. CIWA SCORING CONSISTENLY 12, ON Q2H CIWA SCORING AT THIS POINT. PRN ATIVAN GIVEN X2, NO BENEFIT SEEN. PATIENT PULLED OUT R)AC PIV AT APPROX 2200. R) POSTERIOR FA PIV PATENT, ABX INFUSE WITHOUT DIFFICULTY, DRESSING CDI. LS CLEAR, O2 SATS >90% ON RA. BS X4, NO BM THIS SHIFT. RIOS DRAINS ADEQUATE AMOUNTS OF CLEAR YELLOW URINE. MULTIPLE SKIN ISSUES- MOUTH, LOWER EXTREMETIES, BRUISING TO ABDOMEN ET R) OUTER THIGH Follow up: LUMBAR PUNCTURE IN AM TO R/O MENINGITIS
[2017-01-24 05:39] LABS: BASOPHIL % 0.1 %; EOSINOPHIL % 0.1 %; HEMATOCRIT 24.1 % (37.0-53.0); IMMATURE GRANULOCYTE # 0.1 K/uL (0.0-0.3); IMMATURE GRANULOCYTE % 0.6 %; LYMPHOCYTE # 1.2 K/uL (0.8-4.0); LYMPHOCYTE % 10.1 %; MCH 30.6 pg (27.0-34.0); MCV 95.6 fl (83.0-98.0); MONOCYTE # 0.8 K/uL (0.0-1.0); MONOCYTE % 7.2 %; MPV 8.5 fl (9.4-12.4); NEUTROPHIL # (ANC) 9.5 K/uL (1.4-9.0); NEUTROPHIL % 81.9 %; NRBC % 0 /100WBC (0-0.00); PLATELET COUNT 397 K/uL (150-450); RBC 2.52 M/uL (4.00-6.00); RDW-CV 14.8 % (11.9-14.6); WBC 11.6 K/uL (4.0-11.0)
[2017-01-24 05:41] LABS: HEMOGLOBIN 7.7 g/dL (12.0-17.0)
[2017-01-24 05:55] LABS: ALBUMIN 2.3 gm/dL (3.5-5.0); ALK PHOS 76 IU/L (33-138); ALT 53 IU/L (12-78); AST 91 IU/L (10-40); BLOOD UREA NITROGEN 11 mg/dL (6-24); CALCIUM 8.4 mg/dL (8.5-10.5); CO2 21 mMol/L (22-32); CREATININE 0.5 mg/dL (0.6-1.3); POTASSIUM 3.1 mMol/L (3.7-5.1); TOTAL BILIRUBIN 0.5 mg/dL (0.0-1.5); TOTAL PROTEIN 5.6 g/dL (6.0-8.4)
[2017-01-24 05:56] LABS: ANION GAP 16.1 (10.0-19.0); CHLORIDE 116 mMol/L (96-110); SODIUM 150 mMol/L (135-145)
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
--- NOTE | 2017-01-25 04:55 | NUR ---
Significant Event: PT ALERT, ORIENTED TO SELF, PLACE AT TIMES. 1:1 OBSERVATION FOR RESTLESSNESS. FOLLOWS COMMANDS OCCASIONALLY. LEFT ARM FLACCID, NUMB. MOVES OTHER EXTREMITIES SPONTANEOUSLY. PUPILS 4, BRISK. NO HEADACHE. DISORGANIZED SPEECH AT TIMES. SINUS RHYTHYM, HR 70S-90S, SBP 110S-120S. AFEBRILE. 2L NC INITIATED FOR SATS IN LOW 90S. LUNGS COARSE, ABLE TO CLEAR WITH COUGH. RIOS 500ML OUT. 1 BM THIS SHIFT. MULTIPLE SKIN ISSUES. PIV TO RIGHT FOREARM INFUSING. PRN HALDOL, ATIVAN, AND DILAUDID GIVEN. Follow up:
[2017-01-25 09:40] LABS: BASOPHIL % 0.1 %; EOSINOPHIL # 0.1 K/uL (0.0-0.5); EOSINOPHIL % 0.6 %; HEMATOCRIT 23.5 % (37.0-53.0); IMMATURE GRANULOCYTE # 0.1 K/uL (0.0-0.3); IMMATURE GRANULOCYTE % 0.5 %; LYMPHOCYTE # 1.4 K/uL (0.8-4.0); LYMPHOCYTE % 14.1 %; MCH 30.9 pg (27.0-34.0); MCHC 32.3 gm/dL (32.0-36.5); MCV 95.5 fl (83.0-98.0); MONOCYTE # 0.5 K/uL (0.0-1.0); MONOCYTE % 5.6 %; NEUTROPHIL # (ANC) 7.7 K/uL (1.4-9.0); NEUTROPHIL % 79.1 %; NRBC % 0 /100WBC (0-0.00); PLATELET COUNT 332 K/uL (150-450); RBC 2.46 M/uL (4.00-6.00); RDW-CV 14.8 % (11.9-14.6); WBC 9.7 K/uL (4.0-11.0)
[2017-01-25 09:41] LABS: HEMOGLOBIN 7.6 g/dL (12.0-17.0)
[2017-01-25 09:57] LABS: ALK PHOS 72 IU/L (33-138); ALT 52 IU/L (12-78); AST 60 IU/L (10-40); CALCIUM 7.8 mg/dL (8.5-10.5); CO2 26 mMol/L (22-32); CREATININE 0.4 mg/dL (0.6-1.3); TOTAL PROTEIN 5.3 g/dL (6.0-8.4)
[2017-01-25 10:00] LABS: ANION GAP 9.7 (10.0-19.0); BLOOD UREA NITROGEN 5 mg/dL (6-24); CHLORIDE 117 mMol/L (96-110); POTASSIUM 2.7 mMol/L (3.7-5.1); SODIUM 150 mMol/L (135-145); TOTAL BILIRUBIN 0.3 mg/dL (0.0-1.5)
--- NOTE | 2017-01-25 17:26 | NUR ---
Significant Event: PT A&O to self, restless and agitated at times. Speaks loudly at times and c/o back pain. Often able to redirect, but consistently vocalizes the desire to smoke. Hi-Lo bed with mats and alarm, 1:1 supervision due to constant restlessness. Bilat lower extremities equal in strength, L) arm flaccid, R) arm strong to command. Denies headache, numbness, and tingling. Pupils equal and brisk. CIWA 0-9. PRN ativan and dilaudid 1x each. R) PIV patent and running KCl @ 55mL/hr; R) Midline inserted this afternoon running D5W/0.45NS @ 150. Vanco was hung at 1513, but computer malfunction may show missed dose. BS active; lung sounds coarse, but clears with cough. Multiple skin issues. Dressing applied to L) knee due to draining. Follow up: Nicotine patch? Monitor CIWA and VS. Vanco trough tonight @ 2200.
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
[2017-01-26 08:22] LABS: BASOPHIL % 0.3 %; EOSINOPHIL # 0.2 K/uL (0.0-0.5); HEMATOCRIT 24.1 % (37.0-53.0); IMMATURE GRANULOCYTE % 0.3 %; LYMPHOCYTE # 1.2 K/uL (0.8-4.0); MCH 30.8 pg (27.0-34.0); MCV 96.4 fl (83.0-98.0); MONOCYTE # 0.5 K/uL (0.0-1.0); MONOCYTE % 5.1 %; MPV 9.3 fl (9.4-12.4); NEUTROPHIL % 79.3 %; NRBC % 0 /100WBC (0-0.00); PLATELET COUNT 327 K/uL (150-450); RDW-CV 14.6 % (11.9-14.6); WBC 8.8 K/uL (4.0-11.0)
[2017-01-26 08:27] LABS: HEMOGLOBIN 7.7 g/dL (12.0-17.0)
[2017-01-26 08:42] LABS: ALK PHOS 75 IU/L (33-138); ALT 46 IU/L (12-78); AST 45 IU/L (10-40); BLOOD UREA NITROGEN 3 mg/dL (6-24); CHLORIDE 112 mMol/L (96-110); CO2 26 mMol/L (22-32); CREATININE 0.4 mg/dL (0.6-1.3); SODIUM 144 mMol/L (135-145); TOTAL BILIRUBIN 0.3 mg/dL (0.0-1.5); TOTAL PROTEIN 5.2 g/dL (6.0-8.4)
[2017-01-26 09:01] LABS: ALBUMIN 1.9 gm/dL (3.5-5.0); ANION GAP 8.8 (10.0-19.0); CALCIUM 7.4 mg/dL (8.5-10.5); POTASSIUM 2.8 mMol/L (3.7-5.1)
--- NOTE | 2017-01-26 12:28 | NUR ---
A - PER DISCHARGE HUDDLES, PT W/ STAGE 3 PU'S TO L) ELBOW AND COCCYX. PT W/ HX OF TBI. PT IS A/O X 2 AND IS A 1:1. K+ 2.8, GLU 113, BUN/ELECTRICIAN'S HELPER 3/0.4, ALB 1.9, H/H 7.7/24.1. PT HAS BEEN NPO/CL SINCE ADMIT, NO MORE ALERT SO DIET ADVANCED TO REGULAR. PT DOES NOT APPEAR TO HAVE ANY TEETH BUT STATES HE CAN CHEW EVERYTHING. PT STATES HE IS HUNGRY AND IS RECEPTIVE TO CHOCOLATE ENSURE BID. EST NEEDS: [id number] KCALS, 85-99 GM PROTEIN, 1 ML/KCAL FLUIDS. D - AT RISK W/ INCREASED PROTEIN NEEDS R/T ALTERED SKIN INTEGRITY AEB PRESSURE ULCERS. I - GOAL: 75% MEAL INTAKE. M/E - WILL F/U ON INTAKE IN 3-5 DAYS AND ASSIST NEEDED.
--- NOTE | 2017-01-26 17:13 | NUR ---
Significant Event: PT A&Ox3, shortness of breath on exertion and some tremors. Speaks softly and mumbles at times and c/o back & L) shoulder pain. Hi-Lo bed with mats and alarm, 1:1 supervision due to constant restlessness. Bilat lower extremities equal in strength, L) arm flaccid, R) arm strong to command. Denies headache, numbness, and tingling. Pupils equal and brisk. CIWA 0-2. No PRNs given. R) PIV D/C; R) Midline running vanco and potassium. Nurse draws to midline okay. BS active; lung sounds coarse, but clears with cough. Multiple skin issues. Dressing applied to L) knee due to draining. Wound care consult assigns stage III to pressure sores on sacrum and L) elbow. Elevate bilat arms. D/C'd all IVF/Abx. Started clindamycin 600mg IV TID starting tomorrow. Follow up: Nicotine patch to R) shoulder. Continue to monitor neuro and CIWA.
[2017-01-27 05:18] LABS: ALBUMIN 1.9 gm/dL (3.5-5.0); ALK PHOS 72 IU/L (33-138); ALT 40 IU/L (12-78); ANION GAP 10.2 (10.0-19.0); AST 30 IU/L (10-40); BLOOD UREA NITROGEN 3 mg/dL (6-24); CALCIUM 7.7 mg/dL (8.5-10.5); CHLORIDE 114 mMol/L (96-110); CO2 25 mMol/L (22-32); CREATININE 0.3 mg/dL (0.6-1.3); POTASSIUM 3.2 mMol/L (3.7-5.1); SODIUM 146 mMol/L (135-145); TOTAL BILIRUBIN 0.3 mg/dL (0.0-1.5); TOTAL PROTEIN 4.9 g/dL (6.0-8.4)
[2017-01-27 05:20] LABS: BASOPHIL % 0.1 %; EOSINOPHIL # 0.3 K/uL (0.0-0.5); HEMATOCRIT 24.6 % (37.0-53.0); HEMOGLOBIN 8.1 g/dL (12.0-17.0); IMMATURE GRANULOCYTE # 0.1 K/uL (0.0-0.3); IMMATURE GRANULOCYTE % 0.4 %; LYMPHOCYTE # 1.2 K/uL (0.8-4.0); LYMPHOCYTE % 8.1 %; MCH 31.4 pg (27.0-34.0); MCHC 32.9 gm/dL (32.0-36.5); MCV 95.3 fl (83.0-98.0); MONOCYTE # 0.7 K/uL (0.0-1.0); MONOCYTE % 4.6 %; MPV 9.8 fl (9.4-12.4); NEUTROPHIL # (ANC) 12.6 K/uL (1.4-9.0); NEUTROPHIL % 84.8 %; NRBC % 0 /100WBC (0-0.00); PLATELET COUNT 385 K/uL (150-450); RBC 2.58 M/uL (4.00-6.00); RDW-CV 14.5 % (11.9-14.6); WBC 14.9 K/uL (4.0-11.0)
--- NOTE | 2017-01-27 18:42 | NUR ---
Significant Event: Follow up: Patient Awake alert and oriented X 3 thus shift. SOB with activity. Mumbles, hard to understand at times. L arm flaccid. Stage III pressure ulcer on sacrum and L elbow. Nicoderm patch to L shoulder. Lung sounds coarse, but clears with cough. Midline running ABX and potassium. Incontinent of bowels X 2 this shift. Voids via indwelling urinary catheter. Patient being transferred to [facility].
--- NOTE | 2017-01-28 04:46 | NUR ---
Significant Event: BLANKAT IS ALERT AND ORIENTED SPEAKS QUITLY. AMBULATES WITH HEAVY 2 ASSIST GB HAND HOLD. VSS WNL ON 2L O2. RIOS DRAINING YELLOW URINE. HAS MUTIPLE SCABS BRUISES ON BODY, WOUND ON COCYX. LEFT ARM FLACCID HISTORY OF HERPES USE STANDARD PRECAUTIONS. R UPPER ARM MIDLINE FLUIDS RUNING Follow up:
[2017-01-28 04:51] LABS: BASOPHIL % 0.1 %; EOSINOPHIL # 0.2 K/uL (0.0-0.5); EOSINOPHIL % 0.7 %; HEMATOCRIT 23.7 % (37.0-53.0); IMMATURE GRANULOCYTE # 0.2 K/uL (0.0-0.3); IMMATURE GRANULOCYTE % 0.7 %; LYMPHOCYTE # 1.7 K/uL (0.8-4.0); LYMPHOCYTE % 7.8 %; MCH 31.2 pg (27.0-34.0); MCHC 32.9 gm/dL (32.0-36.5); MCV 94.8 fl (83.0-98.0); MONOCYTE % 4.7 %; MPV 9.7 fl (9.4-12.4); NRBC % 0 /100WBC (0-0.00); PLATELET COUNT 380 K/uL (150-450); RDW-CV 14.6 % (11.9-14.6)
[2017-01-28 04:54] LABS: HEMOGLOBIN 7.8 g/dL (12.0-17.0); WBC 22.1 K/uL (4.0-11.0)
[2017-01-28 05:09] LABS: ALK PHOS 77 IU/L (33-138); ALT 29 IU/L (12-78); ANION GAP 10.7 (10.0-19.0); AST 16 IU/L (10-40); BLOOD UREA NITROGEN 3 mg/dL (6-24); CALCIUM 7.5 mg/dL (8.5-10.5); CHLORIDE 108 mMol/L (96-110); CO2 25 mMol/L (22-32); CREATININE 0.3 mg/dL (0.6-1.3); POTASSIUM 3.7 mMol/L (3.7-5.1); SODIUM 140 mMol/L (135-145)
[2017-01-28 05:10] LABS: ALBUMIN 1.7 gm/dL (3.5-5.0); TOTAL BILIRUBIN 0.4 mg/dL (0.0-1.5); TOTAL PROTEIN 4.9 g/dL (6.0-8.4)
--- NOTE | 2017-01-28 09:30 | NUR ---
DIETARY CONSULT RECEIVED HOWEVER NO REASON FOR CONSULT GIVEN. PT IS BEING FOLLOWED BY RD. RECEIVES ENSURE BID. DOES HAVE STAGE III PU. WILL CONTINUE CURRENT INTERVENTIONS AND CONTINUE TO FOLLOW.
--- NOTE | 2017-01-28 16:29 | NUR ---
Significant Event: Patient up to chair with physical therapy and back to bed with nursing assistance. Patient is a [address] Wright in and started patient on IV Vancomycin due to elevated WBC, magnesium IV for low serum magnesium level, and to check a chest xray in the morning. Dr. Wright also wrote order for a stool for cdiff. In looking back at ICU charting patient has been having liquid stools even though patient's stool today was soft per report of INTERNATIONAL ACCOUNTING MANAGER. Nurse did not observe this stool. Patient has only had one today, but in ICU it looks as though patient had as many as 4 large liquid BM's in one day. Explained Dr. Wright's orders to patient including need for isolation until we can rule out cdiff. Patient verbalized understanding of orders, but may need reminding of orders as throughout the day patient has asked clarifying questions. Patient has not tried to get out of bed or the chair. Alarms are still on for safety. Stool just obtained by INTERNATIONAL ACCOUNTING MANAGER for the cdiff sample and will be walked down to lab momentarily--results pending. Significant urine output of 3325 ml--Dr. Wright aware of this. Patient in good spirits. Cooperative with cares. Follow up: Continue to monitor.
--- NOTE | 2017-01-29 00:52 | NUR ---
SIGNIFICANT EVENT: Pt alert at first assessment, very sleepy at second assessment. Tachycardic (101 to 107) and tachypneic (22 to 24) - on 4L and then reduced to 3L at 0000. Midline to R)UA infusing 1/2 NS at 100 with intermittent Vanco and Zosyn. CDiff sample taken yesterday - results were Negative. Refused 2200 oxycodone. 2PA gaitbelt. Regular diet. Cooperative with cares.
--- NOTE | 2017-01-29 07:09 | NUR ---
pt refused cpt this am due to pain
[2017-01-29 07:46] LABS: BASOPHIL % 0.1 %; EOSINOPHIL # 0.2 K/uL (0.0-0.5); EOSINOPHIL % 1.1 %; HEMATOCRIT 23.7 % (37.0-53.0); IMMATURE GRANULOCYTE # 0.1 K/uL (0.0-0.3); IMMATURE GRANULOCYTE % 0.7 %; LYMPHOCYTE # 1.2 K/uL (0.8-4.0); LYMPHOCYTE % 5.8 %; MCH 31.6 pg (27.0-34.0); MCHC 33.3 gm/dL (32.0-36.5); MCV 94.8 fl (83.0-98.0); MONOCYTE # 1.2 K/uL (0.0-1.0); MONOCYTE % 5.6 %; MPV 9.9 fl (9.4-12.4); NEUTROPHIL # (ANC) 18.3 K/uL (1.4-9.0); NEUTROPHIL % 86.7 %; NRBC % 0 /100WBC (0-0.00); PLATELET COUNT 424 K/uL (150-450); RDW-CV 14.4 % (11.9-14.6)
[2017-01-29 08:01] LABS: ALK PHOS 106 IU/L (33-138); ALT 24 IU/L (12-78); ANION GAP 11.6 (10.0-19.0); AST 12 IU/L (10-40); BLOOD UREA NITROGEN 4 mg/dL (6-24); CALCIUM 7.9 mg/dL (8.5-10.5); CHLORIDE 107 mMol/L (96-110); CO2 25 mMol/L (22-32); CREATININE 0.3 mg/dL (0.6-1.3); POTASSIUM 3.6 mMol/L (3.7-5.1); SODIUM 140 mMol/L (135-145); TOTAL BILIRUBIN 0.4 mg/dL (0.0-1.5); TOTAL PROTEIN 5.2 g/dL (6.0-8.4)
[2017-01-29 08:02] LABS: ALBUMIN 1.7 gm/dL (3.5-5.0)
[2017-01-29 08:03] LABS: HEMOGLOBIN 7.9 g/dL (12.0-17.0); WBC 21.1 K/uL (4.0-11.0)
--- NOTE | 2017-01-29 14:40 | NUR ---
A-NUTRITION F/U C-DIFF NEG. NO NEW WT SINCE LAST NOTE LABS: NA 140, K+ 3.6, GLU 95, BUN 4, MECHANICAL LABORATORY TECHNICIAN 0.3, ALB 1.7 MEDS: VANCOMYCIN, VALIUM, ZOSYN, FEOSOL, PROTONIX DIET RX: REGULAR W/ENSURE ENLIVE TID. PO INTAKE SIPS/BITES-100%; AVG IS 28% D-AT NUTRITION RISK W/INCREASED PROTEIN NEEDS R/T ALTERED SKIN INTEGRITY AEB PRESSURE ULCERS I-1)CONTINUE ENSURE ENLIVE BID 2)ADD MAGIC CUP QD M/E-GOAL: PO INTAKE >/=50% BY NEXT F/U 1)F/U PO INTAKE, SUPPLEMENT, WT, AND POC IN 4-5 DAYS 2)ASSIST NEEDED
--- NOTE | 2017-01-29 16:40 | NUR ---
SPOKE TO PATIENT REGARDING CM AND OUR ROLE. PATIENT TELLS ME THAT HE IS PLANNING ON GOING TO STAY WITH HIS MOTHER ONCE HE IS READY FOR DISCHARGE. HE GIVES ME PREMISSION TO CONTACT HER ([phone]). WHEN I CONTACT HER, SHE TELLS ME THAT IT IS NOT AN OPTION FOR DIGNA TO STAY WITH HER AND SHE TELLS ME " I AM NOT SURE WHAT WE ARE GOING TO DO WITH HIM." I REVIEWED THE CHART AND NOTED THAT HE HAS A CHINA DECORATOR MARY CARMEN IYER ([phone]). I ATTEMPTED TO SPEAK TO MARY CARMEN TO SEE IF HE CAN BE OF ASSIT FOR DIGNA BUT I HAD TO LEAVE A MESSAGE ON HIS VOICE MAIL TO CONTACT ME. WILL CONT TO FOLLOW NEEDED.
--- NOTE | 2017-01-29 16:48 | NUR ---
Significant event: Patient is alert and oriented. Is forgetful and will repeat questions often. VSS. on 2liters of O2. Neb tx given per resp therapy. Left arm in sling and is painful, flaccid. Moeller in place and is patent. Midline to right upper arm, fluids and intermittent antibiotics. Had mushy bm today, was C-Diff neg yesterday. Has sores to back and coccyx, reposition frequently. Is very talkative, though not always able to understand what is saying at first, mumbling and slurring slightly. [place] with speech. Is incontinent of stools. Is 2 assist with transfers. Cooperative with cares.
[2017-01-30 01:34] LABS: BICARBONATE 28.1 mmol/L (18.0-23.0); PCO2 36 mmHg (35-45); PO2 61 mmHg (80-90)
[2017-01-30 02:36] LABS: BASOPHIL % 0.1 %; EOSINOPHIL # 0.3 K/uL (0.0-0.5); EOSINOPHIL % 1.3 %; HEMATOCRIT 26.7 % (37.0-53.0); HEMOGLOBIN 8.7 g/dL (12.0-17.0); IMMATURE GRANULOCYTE # 0.2 K/uL (0.0-0.3); IMMATURE GRANULOCYTE % 0.7 %; LYMPHOCYTE # 1.8 K/uL (0.8-4.0); LYMPHOCYTE % 8.4 %; MCH 31.2 pg (27.0-34.0); MCHC 32.6 gm/dL (32.0-36.5); MCV 95.7 fl (83.0-98.0); MONOCYTE # 1.7 K/uL (0.0-1.0); MONOCYTE % 7.8 %; MPV 10.2 fl (9.4-12.4); NEUTROPHIL # (ANC) 17.7 K/uL (1.4-9.0); NEUTROPHIL % 81.7 %; NRBC % 0 /100WBC (0-0.00); PLATELET COUNT 503 K/uL (150-450); RBC 2.79 M/uL (4.00-6.00); RDW-CV 14.4 % (11.9-14.6)
[2017-01-30 02:37] LABS: WBC 21.7 K/uL (4.0-11.0)
[2017-01-30 02:51] LABS: ANION GAP 11.7 (10.0-19.0); BLOOD UREA NITROGEN 3 mg/dL (6-24); CALCIUM 7.8 mg/dL (8.5-10.5); CHLORIDE 107 mMol/L (96-110); CO2 27 mMol/L (22-32); MAGNESIUM 1.7 mg/dL (1.8-2.6); PHOSPHORUS 3.9 mg/dL (2.5-4.9); POTASSIUM 3.7 mMol/L (3.7-5.1); SODIUM 142 mMol/L (135-145)
[2017-01-30 03:00] LABS: ALBUMIN 1.9 gm/dL (3.5-5.0); CREATININE 0.5 mg/dL (0.6-1.3)
[2017-01-30 03:05] LABS: BILIRUBIN URINE NEGATIVE (NEGATIVE); BLOOD URINE NEGATIVE /UL (NEGATIVE); COLOR URINE YELLOW (YELLOW); GLUCOSE URINE NEGATIVE (NEGATIVE); KETONE URINE NEGATIVE (NEGATIVE); LEUKOCYTES URINE NEGATIVE /UL (NEGATIVE); NITRITE URINE NEGATIVE (NEGATIVE); PROTEIN URINE NEGATIVE (NEGATIVE); SPEC GRAVITY URINE 1.005 (1.003-1.035); TURBIDITY URINE CLEAR (CLEAR); UROBILINOGEN URINE NORMAL (NORMAL)
--- NOTE | 2017-01-30 03:30 | NUR ---
Pt. transferred to ICU at 0135 after a rapid decline in status. Upon assessment following duoneb treatment VS were 98.7, 138, 142/83, 40, 86% on 4L of O2. RT was present in room and changed nasal cannula to simple mask and was 88% on 10L. MD was originally notified to suction but did not work as pt. did not tolerate very well and could not suction anything out via nasal or oral. MD present in room and simple mask was changed to nonrebreather mask on 15L and sats were 90%. MERCHANT MARINER was called and pt. transferred. Pt. was alert the whole time. 2 assist with transfers. Moeller patent. Regular diet. Midline in R) upper arm with fluids running. IV antibx - zosyn and vanco. Turn frequently - sores on coccyx. Negative for c-diff yesterday. Sputum culture was sent down at beginning of shift. Scheduled pain meds. L) arm flaccid from accident and sling to be worn. Cooperative and pleasant with cares. Report given to Lisa VALVERDE in ICU.
[2017-01-30 05:39] LABS: BICARBONATE 27.9 mmol/L (18.0-23.0); PCO2 35 mmHg (35-45)
[2017-01-30 05:45] LABS: PO2 102 mmHg (80-90)
--- NOTE | 2017-01-30 05:46 | NUR ---
Significant Event: PATIENT TRANSFERRED TO ICU FOLLOWING A RAPID RESPONSE EVENT. A/O, PLEASANT ET COOPERATIVE. SOB, O2 SATS >90 ON 80% FiO2 VIA BIPAP. PATIENT EXPERIENCING SOB, CL DIM T/O. ABLE TO WEAN FIO2 TO 70% FIO2. RIOS CHANGED, URINE CULTURE OBTAINED. R) UPPER ARM PIV PATENT, DRESSING CDI. SILVER DOLLAR SIZED OPEN AREA TO COCCYX, MOISTURE BARRIER APPLIED. SEVERAL SCABBED AREAS TO BILATERAL SHINS. TEMP 101.8 TYMPANIC, DECREASED TO 100.2 Follow up: MONITOR
--- NOTE | 2017-01-30 08:22 | NUR ---
RECEIVED CALL FROM MARY CARMEN IYER ([phone]) WITH [facility]. HE IS THE JOB COST ESTIMATOR FOR DIGNA THAT HELPS WITH MEDICAL NEEDS. HE WAS NOT AWARE THAT DIGNA HAD BEEN ADMITTED TO THE HOSPITAL AND HE HAS BEEN ARRANGING FOR CARE GIVERS FOR DIGNA. I EXPLAINED TO HIM THAT DIGNA HAS BEEN ADMITTED TO [facility] AND THAT I SPOKE TO HIS MOM YESTERDAY AND SHE WILL NOT LET DIGNA COME BACK TO LIVE WITH HER. AND I EXPLAINED TO HIM THAT DIGNA WILL NEED TO GO TO SNF OR HALFWAY ONCE HE IS READY FOR DISCHARGE I DO NOT THINK THAT IT IS SAFE FOR HIM TO LIVE ALONE. MARY CARMEN TELLS ME THAT HE CAN ASSIT WITH THIS AND THAT ONCE HE IS READY FOR DISCHARGE TO CONTACT HIM REGARDING WHAT LEVEL OF CARE DIGNA NEEDS. HE REPORTS THAT IF HE NEEDS AN MEHDI THAT HE HAS FUNDING TO PAY FOR THE MEHDI OR THE SNF. WILL CONT TO FOLLOW NEEDED.
--- NOTE | 2017-01-30 14:05 | NUR ---
ST RECOMMENDING PUREE, HONEY THINK LIQUIDS AFTER MBS. ENSURE TID DISCONTINUED; MAGIC CUPS ORDERED BID, ENSURE PUDDING QD. WILL F/U ON INTAKE IN 2-4 DAYS.
--- NOTE | 2017-01-30 15:32 | NUR ---
Social visit with Rajendra and his mom, Emilie. Talked with them both about dismissal plans. Emilie voiced to him that she doesn't feel comfortable taking him home with her upon dismissal and Rajendra agrees' that this is not the solution to his living situation. Talked with them both about MEHDI vs SNF placement. Explained that right now, he would most likey be a better SNF canidate, but down the road after strenghtening and things like that, he would be a good fit for an MEHDI. Rajendra agrees with this plan. He has no preference on which SNF we look into here in [facility]. Also talked about his case management manager through [facility], Oscar Pena. Rajendra states he has never met Oscar and he would like to meet with him since he was going to be helping post hospitalization. He asked if I would call him to see if he would be willing to come up and visit him while he was here. Let Rajendra know I would do this. In the meantime, I did gather information so I could fax out referrals to SNFs in [facility]. Later phoned to Oscar, Medicaid and LTC, , VM updating him to the above and also asked if he would be willing to come up to [facility] and meet with Rajendra and introduce himself to him. Will wait for a call back from him reguarding this. Faxed referrals to [facility], [facility], and [facility]. to continue to follow and assist. Plan SNF
[2017-01-30 16:24] LABS: ANION GAP 11.4 (10.0-19.0); BLOOD UREA NITROGEN 5 mg/dL (6-24); CALCIUM 8.8 mg/dL (8.5-10.5); CHLORIDE 100 mMol/L (96-110); CO2 30 mMol/L (22-32); CREATININE 0.6 mg/dL (0.6-1.3); POTASSIUM 3.4 mMol/L (3.7-5.1); SODIUM 138 mMol/L (135-145)
--- NOTE | 2017-01-30 16:24 | NUR ---
Significant Event: PATIENT IS CURRENTLY ON 4L N/C WITH CLEAR LUNG SOUNDS AND STRONG COUGH. FAILED BARIUM SWALLOW TEST TODAY, CURRENTLY ON PUREED DIET WITH HONEY THICKEN LIQUIDS. PILLS ARE TO BE CRUSHED AND GIVEN WITH APPLESAUCE. NEURO- PATIENT IS ALERT AND ORIENTED X3, SLIGHTLY FORGETFUL. VALIUM WAS HELD IN THE AM. Follow up: CONTINUE CARES.
--- NOTE | 2017-01-31 04:49 | NUR ---
Significant Event: Patient is A/O, pleasant et cooperative. Denies pain. 4L o2 via NC, to Bipap at HS at 40% Fio2. Consent given et signed re: L) thoracentesis this morning. Patient states on multiple occasions that "no matter what happens, I want everyone to know that my body is to be donated to science and I will sign whatever I need to to make sure that happens". LS coarse but clear after coughing. BS x4, inc of mod soft BM. Moeller intact draining adequate amounts of clear yellow urine. Pureed diet with honey thickened, poor appetite for dinner. L) arm flaccid but c'o burning sensation to L) hand et forearm. Hi-Low bed, alarms active, no attempts made to get OOB, uses call light appropriately. Follow up: L) thoracentesis
[2017-01-31 05:39] LABS: HEMATOCRIT 23.4 % (37.0-53.0); MCH 30.4 pg (27.0-34.0); MCHC 32.1 gm/dL (32.0-36.5); MCV 94.7 fl (83.0-98.0); MPV 10.1 fl (9.4-12.4); PLATELET COUNT 490 K/uL (150-450); RBC 2.47 M/uL (4.00-6.00); RDW-CV 14.4 % (11.9-14.6); WBC 13.9 K/uL (4.0-11.0)
[2017-01-31 05:41] LABS: HEMOGLOBIN 7.5 g/dL (12.0-17.0)
[2017-01-31 05:57] LABS: ANION GAP 9.6 (10.0-19.0); CALCIUM 8.4 mg/dL (8.5-10.5); CHLORIDE 105 mMol/L (96-110); CO2 31 mMol/L (22-32); CREATININE 0.5 mg/dL (0.6-1.3); MAGNESIUM 2.2 mg/dL (1.8-2.6); PHOSPHORUS 3.7 mg/dL (2.5-4.9); POTASSIUM 3.6 mMol/L (3.7-5.1); SODIUM 142 mMol/L (135-145)
[2017-01-31 05:58] LABS: ALBUMIN 1.8 gm/dL (3.5-5.0); BLOOD UREA NITROGEN 11 mg/dL (6-24)
[2017-01-31 06:12] LABS: ABSOLUTE NEUTROPHIL CT (ANC) 12.7 K/uL (1.4-9.0); BANDED NEUTROPHIL # 0.1 K/uL (0.0-0.1); BANDED NEUTROPHILS % 1 %; LYMPHOCYTE # 0.6 K/uL (0.8-4.0); LYMPHOCYTE % 4 %; MONOCYTE # 0.7 K/uL (0.0-1.0); SEGMENTED NEUTROPHIL # 12.5 K/uL (1.4-9.0); SEGMENTED NEUTROPHIL % 90 %
--- NOTE | 2017-01-31 14:39 | NUR ---
Significant Event: AAOx3, Pupils 3mm brisk. Burning sensation to L) arm, chronic flaccidity. Moves spontaneously and to command. SBP 90-140's, HR 80-100's, 1+ generalized edema. L.S. coarse throughout, RLL diminished on 4L via N.C. produces 1500 with I.S., cream thin sputum able to clear spontaneously. B.S. active last BM 01/30, incontinent of stool. Moeller intact draining pete urine, good UOP. R) upper arm mid-line infusing 1/2 NaCl 40mL/hr with intermittent Atbx. Takes meds crushed in applesauce. Honey thick, pureed diet. Transfers 1-2PA pivot. Follow up: Continue to monitor
--- NOTE | 2017-02-01 04:56 | NUR ---
Significant Event:PATIENT IS A/O X3, VERY TALKATIVE WITH PRESSURED SPEECH. VSS ON 3L N/C DURING THE DAY AND BI-PAP ON 50% DURING THE NIGHT. LS ARE SLIGHTLY COARSE. ADEQUATE UOP, INCONTINENT BM X1. MIDLINE TO R) UPPER ARM, SALINE LOCKED. Follow up: D/C RIOS?
[2017-02-01 05:55] LABS: BASOPHIL % 0.1 %; HEMATOCRIT 25.4 % (37.0-53.0); IMMATURE GRANULOCYTE # 0.1 K/uL (0.0-0.3); IMMATURE GRANULOCYTE % 0.5 %; LYMPHOCYTE # 1.4 K/uL (0.8-4.0); LYMPHOCYTE % 10.7 %; MCH 30.9 pg (27.0-34.0); MCHC 31.5 gm/dL (32.0-36.5); MCV 98.1 fl (83.0-98.0); MONOCYTE # 0.6 K/uL (0.0-1.0); MONOCYTE % 4.9 %; MPV 10.2 fl (9.4-12.4); NEUTROPHIL # (ANC) 10.9 K/uL (1.4-9.0); NEUTROPHIL % 83.8 %; NRBC % 0 /100WBC (0-0.00); PLATELET COUNT 466 K/uL (150-450); RBC 2.59 M/uL (4.00-6.00); RDW-CV 14.6 % (11.9-14.6); WBC 12.9 K/uL (4.0-11.0)
[2017-02-01 06:10] LABS: ANION GAP 10.1 (10.0-19.0); BLOOD UREA NITROGEN 14 mg/dL (6-24); CALCIUM 8.6 mg/dL (8.5-10.5); CHLORIDE 106 mMol/L (96-110); CO2 31 mMol/L (22-32); CREATININE 0.5 mg/dL (0.6-1.3); MAGNESIUM 2.1 mg/dL (1.8-2.6); PHOSPHORUS 3.7 mg/dL (2.5-4.9); POTASSIUM 4.1 mMol/L (3.7-5.1); SODIUM 143 mMol/L (135-145)
--- NOTE | 2017-02-01 11:38 | NUR ---
Call back from [facility], , [facility], and [facility]. None of them are able to accept at this time. Will try to see if [facility] in [place] might be able to accept him upon dismissal. Will also make a referral to [facility] to see if any of [facility] facilities might be able to accept. CM to continue to follow and assist.
--- NOTE | 2017-02-01 12:35 | NUR ---
Significant Event:A/O X 3, euphoric, talkative, pressured speech, forgetful/confused at times. Pupils 4 mm brisk. Chronic burning, numbness and tingling to l) arm, in a pocket sling when up. Stimulator to posterior neck with wires to L) arm, "placed by the pain DrDeepa" to help with arm sensations. Ambulates with 1 assist, gait belt and wheeled walker, up to commode, up to chair for meals. Ambulates in the mario with therapist. NSR. Remains on 2L/NC. Nicotine patch reduced to 14 mg today, on R) upper deltoid. NOn productive cough, able to clear by self. Tolerating pureed diet with honey thickened liquids. Speech therapy here to encourage chin tuck etc with eating. 2 LG BM per commode, wears depend garment. Moeller for accurate I&O. pain to left arm controlled with schedule opioid, last at 1100. Bathed. Moisture barrier to scabs on molina lower legs per patient request. Mother here and updated per patient request. Clips to right ear area noted on xray. Changed to PCU status Follow up:Transfer to PCU, report to ASA Denisse at 1235 over the phone.
--- NOTE | 2017-02-02 04:06 | NUR ---
Pt a/o very talkative. VSS on RA, afebrile. [place]ICK midline SL. 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 Is honey thickened liquids meds crushed in pudding/apple sauce. Prefers pudding. Stayed off bipap all noc- sats remains 96% or greater. On scheduled percocet for pain. On scheduled guaif/robitussin. Moeller in place with 2500 out. Plan: Con't current plan of care.
--- NOTE | 2017-02-02 11:01 | NUR ---
A - NUTRITION F/U. NO NEW LABS. PT W/ O/A'S TO L) ELBOW AND COCCYX. DIET: PUREE W/ HONEY LIQUIDS, ENSURE PUDDING QD AND MAGIC CUPS BID. INTAKE USUALLY 50-100%. D - AT RISK W/ INCREASED NUTRIENT NEEDS R/T ALTERED SKIN INTEGRITY AEB PU'S. I - GOAL: CONT CURRENT INTAKE. M/E - WILL F/U ON INTAKE IN 4-6 DAYS AND CONT TO ASSIST NEEDED.
--- NOTE | 2017-02-02 12:32 | NUR ---
Updated Rajendra and his mom to the progress on placement and having to look outside of town due to no facilities in town being able to accept. Both are fine with this. Plan to keep them updated as I know more. CM to continue to follow and assist.
--- NOTE | 2017-02-02 16:43 | NUR ---
Significant Event: A/OX3, FORGETFUL. PT. EXPRESS MANAGER LIGHT A LOT FOR LITTLE THINGS AND FORGETS WHAT HE PUT IT ON FOR, REPEATS WORDS. PT. GETS 1 TAB OF SCHEDULED PERCOCET FOR PAIN. PT. GETS UP 1 ASSIST IN ROOM. WALKED IN HALLS WITH THERAPY TODAY. RIOS INTACT WITH 850mL UOP. ATE ALL OF MEALS. PUREE DIET WITH HONEY THICKENED LIQUIDS, TAKES MEDS CRUSHED IN APPLESAUCE OR PUDDING. INCONT. OF BOWEL AT TIMES, XLG BM X2 TODAY. L)ARM REMAINS FLACCID, WEARS SLING WHEN WALKING. L)UPPER IV IS SL. Follow up: CONTINUE WITH POC.
--- NOTE | 2017-02-02 23:25 | NUR ---
PT REFUSED TO WEAR HIS BIPAP TONIGHT AND IS CURRENTLY PUT ON 1L NC.
--- NOTE | 2017-02-03 04:35 | NUR ---
Significant Event: Patient is alert and oriented x 3. Forgetful. VSS on 2L of O2. Up with 1 assist and gaitbelt. Left upper extremity flaccid due to past TBI. Wears sling to left arm when ambulating. Incontinent of stool. BM x 1 this shift. Moeller intact, 3425 mls out. Receives scheduled Percocet. Right upper midline IV, good blood return noted. On pureed diet with honey thickened liquids. Takes pills crushed in applesauce. Patient is cooperative with cares. Follow up:
--- NOTE | 2017-02-03 19:00 | NUR ---
PATIENT UP IN CHAIR AND BR W/ 1 ASSIST. TABS ALARM ON ALL TIMES. PATIENT USING CALL LIGHT APPROPIRATELY. IV LASIX GIVEN X1.
--- NOTE | 2017-02-04 02:22 | NUR ---
PT REFUSED TO WEAR HIS BIPAP TONIGHT AND IS CURRENTLY ON 2L NC.
[2017-02-04 05:13] LABS: ALBUMIN 2.3 gm/dL (3.5-5.0); ANION GAP 12.2 (10.0-19.0); BLOOD UREA NITROGEN 12 mg/dL (6-24); CALCIUM 8.6 mg/dL (8.5-10.5); CHLORIDE 106 mMol/L (96-110); CO2 28 mMol/L (22-32); CREATININE 0.5 mg/dL (0.6-1.3); MAGNESIUM 2.1 mg/dL (1.8-2.6); PHOSPHORUS 3.9 mg/dL (2.5-4.9); POTASSIUM 4.2 mMol/L (3.7-5.1); SODIUM 142 mMol/L (135-145)
--- NOTE | 2017-02-04 07:36 | NUR ---
Significant Event: Patient alert and oriented x3. Forgetful. Repetative. Stutters at times. SBP 110s-150s. HRs 80s-110s. All other vital signs stable. On RA-3L with talking. Left arm flaccid, in sling with ambulation. Up with 1 assist and gaitbelt. Incontinent BM x1. Good uop. Right upper midline saline locked. Scheduled Percocet and PRN Tylenol given for complaints of right shoulder/arm pain. Pureed diet with honey thickened liquids. Calm and cooperative with all cares. Follow up: Waiting for placement.
--- NOTE | 2017-02-05 05:34 | NUR ---
Significant Event: Patient alert and oriented x3. Forgetful and repetative. SBP 120s-150s. HR 70s-110s. All other vital signs stable. On RA. Left arm in sling with ambulation. Up with 1 assist and gaitbelt. Right upper midline saline locked. Scheduled Percocet given for left arm pain with relief to patient. Good uop. Pureed diet with honey thickened liquids continues. Meds crushed with applesauce. Calm and cooperative with all cares. Follow up: Waiting for placement
--- NOTE | 2017-02-05 13:58 | NUR ---
Level II Passr is back and they have cleared him to go to a SNF upon dismissal. I called to [facility], , talked with Joanne, she tells me that she has only faxed to [facility] at this point. Even though I asked her to fax out to all of the [facility] in the [facility] on 02/01 during our original conversation, so we weren't behind on placement for him. I again asked her to fax out to all of the facilities as I didn't want to wait for a possible no from [facility] and then work from there. She tells me that she will do this. Let her know I would follow up with her tomorrow on progress. Also let her know he was ready as soon as we found a place so we were essentially just waiting on them. CM to continue to follow and assist.
--- NOTE | 2017-02-05 15:50 | NUR ---
Significant Event: Pt stands to void per urina. PT amb pt in mario. 02 room air. Percocet and tylenols for pain control. Pt uses call lt, calls very often. Pt to have repeat MBS in am. Hr tachy at times. Follow up:
--- NOTE | 2017-02-06 04:23 | NUR ---
A&Ox3. Repetitive at times and forgets words. VSS on R/A. Tachycardic at times with activity. L) arm flaccid and uses sling with ambulation. R) arm midline IVSL. Scheduled percocet given for c/o of burning sensation in arm that patient states is always present. Modified barium study this am. Still on honey thick liquids and pureed diet. 1900 urine output. Sm. BM x1. Waiting for placement.
--- NOTE | 2017-02-06 09:40 | NUR ---
Faxed clinical update into Joanne at [facility] so she could continue to look for SNF placement for Rajendra. Also informed her that I was exploring the option of [facility] as well, but I wanted her to keep working on SNF options for him. She says she is looking in [place] for a SNF and also trying to find him a new PCP to follow as his PCP is here in [place] and couldn't follow in [place]. In the updated faxed information, I also included a copy of his ID Screen as well for them to see. I called to [facility], talked with Priya, who tells me that they did get the initial referral that I faxed over to them yesterday, but the DON and campus administrator is looking over it and then will give her an answer later today. Will call her back around 1200 to see if they have made a decision yet on him. CM to continue to follow and assist.
--- NOTE | 2017-02-06 11:53 | NUR ---
A - NUTRITION F/U. NO NEW LABS. CBW: 159# UP 6# FROM ADMISSION. PT W/ ULCERS TO COCCYX AND L) ELBOW. MBS THIS AM. DIET: PUREE W/ HONEY THICK. MAGIC CUP BID AND ENSURE PUDDING QD. PT CONTS TO EAT WELL. AWAITING PLACEMENT. D - AT RISK W/ INCREASED NUTRIENT NEEDS R/T ALTERED SKIN INTEGRITY AEB PU X 2. I - GOAL: CONT CURRENT INTAKE. M/E - WILL CONT CURRENT SUPPLEMENTS AND MONITOR INTAKE. F/U IN 3-5 DAYS.
--- NOTE | 2017-02-06 15:49 | NUR ---
Significant Event: VSS AND RA. AFEBRILE. SCHEDULED PAIN MEDS WITH GOOD PAIN CONTROL TO HIS LEFT ARM AND ELBOW. VOIDS WITH ADEQUATE UOP, HAD A BM. WORKS WITH PT AND OT IN THE GYM TODAY AND HAD AN MBS DONE THIS AM. DIET ADVANCE TO REGULAR CONSISTENCY AND THIN FLUIDS. HE MAY HAVE HIS TRAIL MIX BUT ABSOLUTELY NO JOLLY RANCHERS OR HARD CANDIES; PT IS AWARE OF THIS AND NONE ARE PRESENT IN HIS ROOM. Follow up: CONTINUE PLAN OF CARE; PROBABLE D/C TO FACILITY [facility].
--- NOTE | 2017-02-07 05:14 | NUR ---
Significant Event: A/O x3. Afebrile. Positional pain with left flaccid arm. Takes sched pain meds. LS clear/dim. Inc void x1, inc large BMx1. VSS on RA. Cooperative with cares. Follow up: Plan for d/c to skilled facility possibly today.
[2017-02-07] MEDS ORDERED: FEOSOL325 MG PO (12:59)
[2017-02-07] MEDS ORDERED: FOLIC ACID1 MG PO (13:00)
[2017-02-07] MEDS ORDERED: ROBITUSSIN100 MG/5 M PO (13:03)
[2017-02-07] MEDS ORDERED: LOPRESSOR25 MG PO (13:04)
[2017-02-07] MEDS ORDERED: DELTASONE5 MG PO (13:08)
[2017-02-07] MEDS ORDERED: PROTONIX40 MG PO (13:09)
[2017-02-07] MEDS ORDERED: FLORASTOR250 MG PO (13:11)
[2017-02-07] MEDS ORDERED: LEVAQUIN ORA25 MG/ML PO (13:12)
--- NOTE | 2017-02-07 13:16 | NUR ---
Call from Loren at [facility], she says that she is going to come up and do Medicaid Waiver paperwork with Rajendra today around [id number]. Let her know that this was fine, but I was hoping that he would be able to dismiss around 1400 to she needed to make sure and come before that. She says that she will be. Call to [employer] and talked with Priya and their law firm administrator, Lynn. Answered their last minute questions about Rajendra that they had and also gave them ' phone number to call and talk to her further about their medical questions. Lynn later called me back, states that the conversation with went great and they would be happy to take him today if he is ready to come to them. I went in and talked supakiera Reyesome about [facility], explained to him what it was and what goals they had for him there. He states," I think this is what I need and it will be a good thing for me, I don't like being away from my mom but I think that once I get done there I will be a better person." Told him that I would call and talk with his mom about this as well and also set him up to get a ride from her today to take him to [facility] in [place]. Orders were printed and packet was started. completed the orders and I faxed them over to [employer] prior to Rajendra dismissing. I also called Lynn again to let her know that orders should be to them on the fax shortly and I was planning on Rajendra leaving here around 1400 today via personal auto. Lynn was fine with this. I called and talked tonya Fair' mom Emilie, explained to her what [facility] was and where it was located. She voiced concern that it was further away than she had hoped, but thinks it would be a good fit for him to go to for the time being. I also let her know that I had talked with Ghada Adamson from [facility], who shares with me that [facility] in [place] said they would accept, but they would have to find a new PCP in [place] to follow him while he was there. She says that [facility] would be better for him than [facility] at this time, and NICOLLE Pimentel agree with this as well. Gave Emilie directions/phone numbers and a brief description of [facility] so she would be able to drive him there today and not get lost. Emilie says that she is going to go gather some of his cloths and things and then be up here around 1400 today to pick him up to get him to [place]. No other questions, needs or concerns. Called and left a VM with Oscar Fair' Medicaid Senior Product Consultant letting him know that Rajendra was dismissing from us today and was going to [facility] in [place]. CM to continue to follow and assist.
[2017-02-07] MEDS ORDERED: TYLENOL325 MG PO (13:17)
[2017-02-07] MEDS ORDERED: DUONEB INH (13:21)
[2017-02-07] MEDS ORDERED: NICODERM / HABIT7 MG TRANS (13:23)
--- NOTE | 2017-02-07 16:17 | NUR ---
D:Patient excited to be [facility]. Is going to facilty in [place]. Mother is taking patient. Rosie packet sent with patient with med list. did go over with patient, but they will be handling meds. Andrea has personal bleongings, IV dc'd and dressed in own clothes. Discharged per [place] per wheel chair, released to mother for transportation to [place].
== END 2017-02-07 14:25 | disposition other institution (70) | DRG 853 ==
LOC: GMED 12:43 → GPCU 15:36 → GICU 15:36 → GMSU 01-27 19:20 → GICU 01-30 01:49 → GPCU 02-01 13:04
PROVIDERS: Emergency Medicine; Internal Medicine; Physician Assistant; ADMIT Internal Medicine
PROC: 0W9L3ZX Drainage of Lower Back, Percutaneous Approach, Diagnostic (ICD-10-PCS; principal; 2017-01-24)
PROC: 0W9B4ZZ Drainage of Left Pleural Cavity, Percutaneous Endoscopic Approach (ICD-10-PCS; 2017-01-31)
DX: A41.9 Sepsis, unspecified organism (principal); J69.0 Pneumonitis due to inhalation of food and vomit; J96.01 Acute respiratory failure with hypoxia; E87.2 Acidosis; L89.152 Pressure ulcer of sacral region, stage 2; E87.0 Hyperosmolality and hypernatremia; D62 Acute posthemorrhagic anemia; M62.82 Rhabdomyolysis; F10.239 Alcohol dependence with withdrawal, unspecified; R65.20 Severe sepsis without septic shock; B00.9 Herpesviral infection, unspecified; D72.829 Elevated white blood cell count, unspecified; E86.0 Dehydration; F39 Unspecified mood [affective] disorder; G25.71 Drug induced akathisia; F17.200 Nicotine dependence, unspecified, uncomplicated
CPT/HCPCS: C1751; C9113; G0480; J0133; J0290; J0515; J0696; J1170; J1630; J1650; J1940; J1956; J2060; J2543; J2930; J3360; J3370; J3411; J3475; J3480; J7030; J7040; J7050; J7060; J7512; Q9967

== ENCOUNTER → 2017-01-22 | Outpatient (CLI) | payer MEDICARE, MEDICAID ==
[~2017-01-22] MED LIST: CYMBALTA30 MG PO; CYMBALTA60 MG PO; DELTASONE5 MG PO; DUONEB INH; FEOSOL325 MG PO; FLORASTOR250 MG PO; FOLIC ACID1 MG PO; KADIAN40 MG PO; LEVAQUIN ORA25 MG/ML PO; LISINOPRIL-HCT1 EAC2 PO; LOPRESSOR25 MG PO; LUNESTA3 MG PO; NEURONTIN300 MG PO; NEXIUM40 MG PO; NICODERM / HABIT7 MG TRANS; PERCOCET 10-321 EACH PO; PROTONIX40 MG PO; ROBITUSSIN100 MG/5 M PO; SEROQUEL50 MG PO; SPIRIVA HANDIHA1 KIT INH; SYMBICORT 16010.2 GM INH; TYLENOL325 MG PO; VESICARE5 MG PO; XYLOCAINE 2%20 MG/ML TOP
== END | disposition disaster alternative care site (69) ==
LOC: GAMB 11:32
DX: R53.1 Weakness (principal); R32 Unspecified urinary incontinence; R41.0 Disorientation, unspecified; Z79.891 Long term (current) use of opiate analgesic; Z79.899 Other long term (current) drug therapy
CPT/HCPCS: A0425; A0429